=== PATIENT | female | born 1995 | race Caucasian/White ===

== ENCOUNTER 2016-08-10 04:30 | Emergency (ER) | payer OTHER ==
[~2016-08-10 04:30] MED LIST: BENADRYL PO; CELEXA20 MG PO; CLARITIN10 M3 PO; DIFLUCAN PO; MOTRIN600 MG PO; NO MEDICATIONS; TYLENOL #3 PO; VISTARIL PO; ZITHROMAX PO
[2016-08-10] MEDS ORDERED: CELEXA20 MG PO (04:41)
[2016-08-10] MEDS ORDERED: KLONOPIN0.5 MG PO (04:41)
== END 2016-08-10 05:26 | disposition home or self-care (01) ==
LOC: SED 04:30
DX: M43.6 Torticollis (principal); F41.9 Anxiety disorder, unspecified; Z91.040 Latex allergy status
CPT/HCPCS: 99283